=== PATIENT | male | born 1950 | race Caucasian/White ===

== ENCOUNTER → 2018-03-20 | Day surgery (SDC) | payer OTHER ==
[~2018-03-20] MED LIST: ACETAMINOPHEN 1000 MG/100 ML 100 ML IV ONE; ASPIR 8181 MG PO; CEFTRIAXONE SOD 1 GM VIAL ONE; DEXAMETHASONE SOD PHOS INJ 4 MG/ML VIAL ONE; FENTANYL CITRATE/PF 100MCG/2 ML INJ ONE; GLIPIZIDE5 MG PO; HYDROMORPHONE 2MG/ML 2 MG/ML ML ONE; INSULIN REGULAR, HUMAN 100 UNIT/1 ML 3ML VIAL ONE; KETOROLAC TROMETHAMINE 30 MG/ML VIAL ONE; LISINOPRIL2.5 MG PO; METFORMIN HCL500 MG PO; METOPROLOL SUCC50 MG PO; ONDANSETRON HCL INJ 2 MG/ML VIAL ONE; PLAVIX75 MG PO; PROPOFOL IV EMULSION 10 MG/ML 20 ML VIAL ONE; SEVOFLURANE INHAL SOLN 250 ML PEN BTL ONE
[2018-03-20 08:56] LABS: BASOPHILS # (AUTO) 0.1 (0.0-0.1); BASOPHILS % 0.9 % (0.0-1.0); EOSINOPHILS # (AUTO) 0.2 (0.0-0.4); EOSINOPHILS % 2.4 % (0.0-6.0); HEMATOCRIT 41.2 % (38.2-49.6); LYMPHOCYTES # (AUTO) 1.6 (1.0-3.2); LYMPHOCYTES % 24.2 % (18.0-39.1); MEAN CORPUSCULAR HEMOGLOBIN 30.4 pg (28-32); MEAN CORPUSCULAR VOLUME 89.6 fL (81-99); MONOCYTES # (AUTO) 0.5 (0.2-0.8); NEUTROPHILS # (AUTO) 4.3 (2.1-6.9); NEUTROPHILS % 63.9 % (38.7-80.0); PLATELET COUNT 222 x10e3/uL (140-360); RED CELL DISTRIBUTION WIDTH 12.6 % (11.7-14.4)
[2018-03-20 09:12] LABS: ANION GAP 15.2 mmol/L (8-16); BLOOD UREA NITROGEN 20 mg/dL (7-26); BUN/CREATININE RATIO 18 (6-25); CALCIUM 9.8 mg/dL (8.4-10.2); CARBON DIOXIDE 26 mmol/L (22-29); CHLORIDE 103 mmol/L (98-107); CREATININE, SERUM 1.09 mg/dL (0.72-1.25); EST GLOMERULAR FILTRATION RATE > 60 ML/MIN (60-); GLUCOSE 199 mg/dL (74-118); POTASSIUM 4.2 mmol/L (3.5-5.1); SODIUM 140 mmol/L (136-145)
[2018-03-20 12:00] VITALS: BP 165/97
--- NOTE | 2018-03-20 13:54 | Operative Report ---
DATE OF PROCEDURE: March 20, 2018 PREOPERATIVE DIAGNOSIS: Right proximal ureteral stone. POSTOPERATIVE DIAGNOSIS: Right proximal ureteral stone. PROCEDURES PERFORMED 1. Cystoscopy. 2. Right retrograde pyelogram. 3. Right ureteroscopy with laser lithotripsy. 4. Placement of right ureteral stent. ANESTHESIA: General anesthesia. ESTIMATED BLOOD LOSS: Minimal. INDICATIONS: Mr. Vipin Cruz is a 67-year-old gentleman with a prior history of nephrolithiasis. He recently presented with microhematuria. The workup revealed a large stone approximately 1 cm in diameter in the proximal ureter on the right side. He had moderate hydronephrosis noted behind this. He now presents for definitive surgical management of this problem. DETAILS OF PROCEDURE: The patient was brought into the operating room and placed in the supine position. After administration of general anesthesia, he was placed in dorsal lithotomy position and prepped and draped in the usual sterile fashion. Cystourethroscopy was performed using a 21-Tajik cystoscope. The anterior and posterior urethra were noted to be normal. The prostate was short but with moderate elevation of the median bar. The bladder was entered without difficulty. Upon entrance into the bladder, the ureteral orifices were in their normal anatomical position and produced largely clear efflux. There were some calcifications noted on the floor of the bladder, and these were irrigated freely. A right retrograde pyelogram was performed using a 5-Tajik open-ended catheter. This revealed a large stone in the right proximal ureter. A 0.035 Amplatz wire was placed through the open-ended catheter up into the right renal pelvis under fluoroscopic guidance. A 12-14 x 38 cm ureteral access sheath was then placed, and this pushed the stone up into the renal pelvis. Flexible ureteroscopy was then performed. There was a small amount of blood clot noted in the pelvis. The stone was noted to be soft and began to fall apart even with touching by the scope. Holmium laser was used to break the stone into multiple smaller fragments. Some of the larger particles were grasped with a basket and removed in their entirety and sent to pathology for microscopic analysis. There were no large fragments visualized of the conclusion of the procedure. A repeat retrograde was performed through the scope, and this revealed only small fragments. A decision was therefore made to conclude the procedure and place a stent. A 7-Tajik x 26-cm stent was then placed such that 1 coil was in the renal pelvis and a subsequent coil was in the bladder. The string was allowed to exit the urethral meatus. The bladder was then drained in its entirety and the cystoscope and sheath removed. The patient was returned to supine position, and anesthesia was reversed. He was transferred to a bed and taken to the postanesthesia care unit in good condition. Of note, the needle and instrument counts were correct at the conclusion of the case. Job#: [id number]
--- NOTE | 2018-03-20 15:49 | Diagnostic Imaging Report ---
PROCEDURE: X-RAY RETROGRADE PYELOGRAM COMPARISON: None. INDICATIONS: Not provided. FINDINGS: Multiple intraoperative spot images of the abdomen and pelvis were obtained. There is retrograde cannulization of the right ureter with contrast injection. There is moderate hydronephrosis. A large filling defect is demonstrated in the mid pole renal collecting system, likely representing stone. A ureteral filling defect is not demonstrated. Final images demonstrate placement of a internal ureteral stent with proximal pigtail in the upper pole calyx and distal pigtail in the bladder. Cumulative fluoro time: 36 seconds Cumulative area dose product: 446.24 cGycm2 Cumulative air kerma: 27.45 mGy CONCLUSION: Right retrograde pyelogram as above. Dictated by: OSBALDO BLACKMON M.D. on 03/20/2018 at 15:55 Electronically approved by: OSBALDO BLACKMON M.D. on 03/20/2018 at 15:55
== END | disposition home or self-care (01) ==
LOC: OR 07:17
PROVIDERS: ATTEND Urology
DX: N20.1 Calculus of ureter (principal); N13.30 Unspecified hydronephrosis; N39.0 Urinary tract infection, site not specified; R97.20 Elevated prostate specific antigen [PSA]; N32.89 Other specified disorders of bladder; G47.33 Obstructive sleep apnea (adult) (pediatric); I25.10 Atherosclerotic heart disease of native coronary artery without angina pectoris; I10 Essential (primary) hypertension; E11.9 Type 2 diabetes mellitus without complications; K21.9 Gastro-esophageal reflux disease without esophagitis; K44.9 Diaphragmatic hernia without obstruction or gangrene; Z79.02 Long term (current) use of antithrombotics/antiplatelets; Z79.84 Long term (current) use of oral hypoglycemic drugs; Z79.82 Long term (current) use of aspirin; Z86.19 Personal history of other infectious and parasitic diseases; Z95.5 Presence of coronary angioplasty implant and graft
CPT/HCPCS: 36415; 52356; 74420; 80048; 82948; 85025; 88300; 93005; C1766; J0696; J1100; J1170; J1885; J2405